=== PATIENT | male | born 1965 | race Caucasian/White ===

== ENCOUNTER 2024-07-17 23:26 | Inpatient (IN) | payer BC ==
[~2024-07-17] VITALS: Ht 186.7 cm; Wt 138.8 kg
[2024-07-17] MEDS ORDERED: ONDANSETRON HCL INJ 2MG/ML 2ML 2 MG/ML VIAL ONE (23:42)
[2024-07-17] MEDS ORDERED: SODIUM CHLORIDE 0.9% 1000ML 1,000 ML ONE (23:43)
[2024-07-17] MEDS: SODIUM CHLORIDE 0.9% 1000ML 1,000 ML IV ONE (23:53)
[2024-07-17] MEDS: ONDANSETRON HCL INJ 2MG/ML 2ML 2 MG/ML VIAL IV STA ×2 (23:58)
[2024-07-17 23:59] LABS: BASOPHILS % 0.1 % (0.0-1.0); EOSINOPHILS # (AUTO) 0.5 (0.0-0.4); EOSINOPHILS % 4.7 % (0.0-6.0); HEMATOCRIT 49.3 % (38.2-49.6); HEMOGLOBIN 15.9 g/dL (14.0-18.0); LYMPHOCYTES # (AUTO) 1.3 (1.0-3.2); MEAN CORPUSCULAR HEMOGLOBIN 30.8 pg (28-32); MEAN CORPUSCULAR HGB CONC 32.3 g/dL (31-35); MEAN CORPUSCULAR VOLUME 95.5 fL (81-99); MONOCYTES # (AUTO) 0.7 (0.2-0.8); MONOCYTES % 7.2 % (4.4-11.3); NEUTROPHILS # (AUTO) 7.7 (2.1-6.9); NEUTROPHILS % 74.8 % (38.7-80.0); PLATELET COUNT 231 x10e3/uL (140-360); RED BLOOD COUNT 5.16 x10e6/uL (4.3-5.7); RED CELL DISTRIBUTION WIDTH 13.2 % (11.7-14.4)
[2024-07-18] VITALS (45 sets, daily range): BP systolic 101–161; BP diastolic 68–120; PULSE 92–118; RESP 11–34; TEMP 97.6–98.5; O2SAT 76–100
[2024-07-18 00:14] LABS: INR 1.74; PARTIAL THROMBOPLASTIN TIME 24.1 seconds (23.8-35.5); PROTHROMBIN TIME 21.3 seconds (11.9-14.5)
[2024-07-18 00:16] LABS: ALBUMIN 3.9 g/dL (3.5-5.0); ALBUMIN/GLOBULIN RATIO 1.6 (0.8-2.0); ANION GAP 15.2 mmol/L (8-16); BILIRUBIN,TOTAL 1.1 mg/dL (0.2-1.2); CALCIUM 8.8 mg/dL (8.4-10.2); CREATININE, SERUM 0.88 mg/dL (0.72-1.25); POTASSIUM 4.2 mmol/L (3.5-5.1); TOTAL PROTEIN 6.4 g/dL (6.5-8.1)
[2024-07-18] MEDS ORDERED: SODIUM CHLORIDE 0.9% 100 ML ONE (00:28)
[2024-07-18] MEDS ORDERED: IOPAMIDOL 370 MG/ML 100 ML INFUS..BTL INJ ONE (00:28)
[2024-07-18] MEDS: SODIUM CHLORIDE 0.9% 1000ML 1,000 ML IV SCH (02:00)
[2024-07-18] MEDS: ONDANSETRON HCL INJ 2MG/ML 2ML 2 MG/ML VIAL IV PRN (04:22)
[2024-07-18] MEDS ORDERED: LOSARTAN POTASS25 MG PO (07:22)
[2024-07-18] MEDS ORDERED: ASPIRIN81 MG PO (07:22)
[2024-07-18] MEDS ORDERED: TIKOSYN250 MCG PO (07:22)
[2024-07-18] MEDS ORDERED: WARFARIN SODIUM5 MG PO (07:22)
[2024-07-18] MEDS ORDERED: LABETALOL HCL200 MG PO (07:22)
[2024-07-18] MEDS ORDERED: WEGOVY2.4 MG/0.7 SC (07:22)
[2024-07-18] MEDS ORDERED: AMLODIPINE BESY10 MG PO (07:22)
[2024-07-18 07:54] LABS: HEMATOCRIT 40.5 % (38.2-49.6)
[2024-07-18] MEDS ORDERED: MELOXICAM7.5 MG PO (10:31)
[2024-07-18] MEDS ORDERED: PROMETHAZINE 12.5MG/ NACL 0.9% 12.5 MG/50 ML BAG IV PRN (11:15)
[2024-07-18] MEDS ORDERED: SIMETHICONE 80 MG CHEW PO PRN (11:15)
[2024-07-18] MEDS ORDERED: METOPROLOL TARTRATE INJ 1 MG/ML VIAL IV PRN (11:15)
[2024-07-18] MEDS ORDERED: ALBUTEROL/IPRATROPIUM 3 ML NEB NEB PRN (11:15)
[2024-07-18] MEDS ORDERED: MELATONIN 3 MG TAB PO PRN (11:15)
[2024-07-18] MEDS ORDERED: ACETAMINOPHEN 325 MG TAB PO PRN (11:15)
[2024-07-18] MEDS: DOFETILIDE 250 MCG PO SCH (11:59)
[2024-07-18 12:49] LABS: CHOL/HDL RATIO 4.7 (3.9-4.7)
[2024-07-18 13:13] LABS: HEMATOCRIT 37.4 % (38.2-49.6); HEMOGLOBIN 11.7 g/dL (14.0-18.0)
[2024-07-18] MEDS: OCTREOTIDE ACETATE 500 MCG in SODIUM CHLORIDE 0.9% 250ML 249 ML IV SCH (14:22)
[2024-07-18] MEDS: LACTATED RINGER'S 1,000 ML INJ SCH (14:24)
[2024-07-18] MEDS ORDERED: DESMOPRESSIN ACETATE 4 MCG/ML VIAL IV ONE (17:30)
[2024-07-18 17:34] LABS: HEMOGLOBIN 10.1 g/dL (14.0-18.0)
[2024-07-18] MEDS: SODIUM CHLORIDE 0.9% 250ML 250 ML IV ONE ×2 (18:28)
[2024-07-18 23:13] LABS: INR 2.15; PROTHROMBIN TIME 25.1 seconds (11.9-14.5)
[2024-07-19] VITALS (50 sets, daily range): BP systolic 102–178; BP diastolic 55–140; PULSE 86–113; RESP 13–29; TEMP 97.9–98; O2SAT 92–100
[2024-07-19] MEDS ORDERED: SODIUM CHLORIDE 0.9% 100 ML ONE (06:24)
[2024-07-19] MEDS ORDERED: IOPAMIDOL 370 MG/ML 100 ML INFUS..BTL INJ ONE (06:24)
[2024-07-19 06:43] LABS: BASOPHILS % 0.2 % (0.0-1.0); EOSINOPHILS # (AUTO) 0.4 (0.0-0.4); EOSINOPHILS % 6.6 % (0.0-6.0); HEMATOCRIT 25.3 % (38.2-49.6); LYMPHOCYTES # (AUTO) 2.1 (1.0-3.2); LYMPHOCYTES % 31.9 % (18.0-39.1); MEAN CORPUSCULAR HEMOGLOBIN 30.5 pg (28-32); MEAN CORPUSCULAR HGB CONC 31.6 g/dL (31-35); MEAN CORPUSCULAR VOLUME 96.6 fL (81-99); MONOCYTES # (AUTO) 0.7 (0.2-0.8); MONOCYTES % 10.7 % (4.4-11.3); NEUTROPHILS # (AUTO) 3.3 (2.1-6.9); NEUTROPHILS % 50.4 % (38.7-80.0); PLATELET COUNT 150 x10e3/uL (140-360); RED BLOOD COUNT 2.62 x10e6/uL (4.3-5.7); RED CELL DISTRIBUTION WIDTH 14.2 % (11.7-14.4); WHITE BLOOD COUNT 6.55 x10e3/uL (4.8-10.8)
[2024-07-19 07:23] LABS: ALBUMIN/GLOBULIN RATIO 1.6 (0.8-2.0); ANION GAP 12.3 mmol/L (8-16); BILIRUBIN,TOTAL 0.6 mg/dL (0.2-1.2); CALCIUM 7.8 mg/dL (8.4-10.2); CREATININE, SERUM 0.92 mg/dL (0.72-1.25); POTASSIUM 4.3 mmol/L (3.5-5.1); TOTAL PROTEIN 4.9 g/dL (6.5-8.1)
[2024-07-19 07:44] LABS: THYROID STIMULATING HORMONE 0.238 uIU/mL (0.350-4.940)
[2024-07-19 07:52] LABS: INR 1.74; PROTHROMBIN TIME 21.3 seconds (11.9-14.5)
[2024-07-19] MEDS ORDERED: DESMOPRESSIN ACETATE 4 MCG/ML VIAL IV ONE (08:15)
[2024-07-19] MEDS: AMLODIPINE BESYLATE 10 MG TAB PO SCH (08:17)
[2024-07-19] MEDS: SODIUM CHLORIDE 0.9% 250ML 250 ML IV ONE (14:44)
[2024-07-19] MEDS ORDERED: KETAMINE 50MG/5ML SYR ONE (15:47)
[2024-07-19] MEDS ORDERED: PROPOFOL IV EMULSION 10 MG/ML 20 ML VIAL ONE ×2 (15:47→16:03)
[2024-07-19] MEDS ORDERED: BENZOCAINE/TETRACAINE/BUTAMBEN AERO SPRAY 56 GM CAN ONE (15:47)
[2024-07-19] MEDS ORDERED: MIDAZOLAM HCL 2 MG/2 ML VIAL ONE (15:51)
[2024-07-19] MEDS: METOCLOPRAMIDE HCL 10 MG/2ML VIAL IV SCH (18:26)
[2024-07-19] MEDS: SUCRALFATE 1 GM/10 ML SUSP NG SCH (18:27)
[2024-07-19 19:31] LABS: HEMATOCRIT 25.8 % (38.2-49.6); HEMOGLOBIN 8.3 g/dL (14.0-18.0)
[2024-07-19 19:49] LABS: INR 1.74; PROTHROMBIN TIME 21.3 seconds (11.9-14.5)
[2024-07-20] VITALS (29 sets, daily range): BP systolic 134–166; BP diastolic 65–102; PULSE 64–94; RESP 13–29; TEMP 97.4–98.7; O2SAT 82–100
[2024-07-20 01:18] LABS: HEMOGLOBIN 8.4 g/dL (14.0-18.0)
[2024-07-20 07:15] LABS: BASOPHILS % 0.2 % (0.0-1.0); EOSINOPHILS # (AUTO) 0.6 (0.0-0.4); EOSINOPHILS % 10.6 % (0.0-6.0); HEMATOCRIT 26.5 % (38.2-49.6); HEMOGLOBIN 8.4 g/dL (14.0-18.0); LYMPHOCYTES # (AUTO) 1.6 (1.0-3.2); LYMPHOCYTES % 28.1 % (18.0-39.1); MEAN CORPUSCULAR HGB CONC 31.7 g/dL (31-35); MEAN CORPUSCULAR VOLUME 94.6 fL (81-99); MONOCYTES # (AUTO) 0.6 (0.2-0.8); MONOCYTES % 9.9 % (4.4-11.3); NEUTROPHILS # (AUTO) 2.9 (2.1-6.9); NEUTROPHILS % 50.7 % (38.7-80.0); PLATELET COUNT 127 x10e3/uL (140-360); RED CELL DISTRIBUTION WIDTH 14.9 % (11.7-14.4); WHITE BLOOD COUNT 5.73 x10e3/uL (4.8-10.8)
[2024-07-20 07:30] LABS: INR 1.66; PROTHROMBIN TIME 20.5 seconds (11.9-14.5)
[2024-07-20 07:37] LABS: ANION GAP 12.7 mmol/L (8-16); CALCIUM 8.3 mg/dL (8.4-10.2); CREATININE, SERUM 0.78 mg/dL (0.72-1.25); POTASSIUM 3.7 mmol/L (3.5-5.1)
[2024-07-20 11:43] LABS: HEMATOCRIT 24.9 % (38.2-49.6); HEMOGLOBIN 7.9 g/dL (14.0-18.0)
[2024-07-20 19:18] LABS: HEMATOCRIT 25.2 % (38.2-49.6)
[2024-07-21] VITALS (16 sets, daily range): BP systolic 108–170; BP diastolic 68–100; PULSE 61–73; RESP 12–25; TEMP 97–98.5; O2SAT 94–100
[2024-07-21 00:47] LABS: HEMATOCRIT 25.6 % (38.2-49.6); HEMOGLOBIN 8.3 g/dL (14.0-18.0)
[2024-07-21 07:14] LABS: HEMOGLOBIN 8.5 g/dL (14.0-18.0)
[2024-07-21 07:48] LABS: INR 1.69; PROTHROMBIN TIME 20.8 seconds (11.9-14.5)
[2024-07-21 18:09] LABS: HEMATOCRIT 27.1 % (38.2-49.6); HEMOGLOBIN 8.7 g/dL (14.0-18.0)
[2024-07-22] VITALS (14 sets, daily range): BP systolic 129–159; BP diastolic 75–93; PULSE 57–76; RESP 14–25; TEMP 97.4–98.3; O2SAT 93–100
[2024-07-22 06:05] LABS: HEMATOCRIT 27.2 % (38.2-49.6); HEMOGLOBIN 8.8 g/dL (14.0-18.0)
[2024-07-22] MEDS: LABETALOL HCL 100 MG TAB PO SCH (11:02)
[2024-07-22 18:17] LABS: HEMATOCRIT 27.3 % (38.2-49.6); HEMOGLOBIN 9.2 g/dL (14.0-18.0)
[2024-07-23] VITALS (10 sets, daily range): BP systolic 135–156; BP diastolic 76–84; PULSE 64–87; RESP 15–20; TEMP 98.1–98.3; O2SAT 94–100
[2024-07-23 06:50] LABS: HEMATOCRIT 26.8 % (38.2-49.6); HEMOGLOBIN 8.9 g/dL (14.0-18.0)
[2024-07-23] MEDS: WARFARIN SOD 5 MG TAB PO ONE (10:13)
[2024-07-24 04:00] VITALS: BP 149/70; PULSE 66; RESP 18; TEMP 98.3; O2SAT 100
[2024-07-24 05:08] LABS: HEMATOCRIT 27.2 % (38.2-49.6)
[2024-07-24 05:35] LABS: INR 1.14; PROTHROMBIN TIME 15.3 seconds (11.9-14.5)
[2024-07-24 08:00] VITALS: BP 134/76; PULSE 87; RESP 18; TEMP 98.4; O2SAT 98
[2024-07-24] MEDS: WARFARIN SOD 5 MG TAB PO SCH (11:31)
[2024-07-24 12:00] VITALS: BP 135/68; PULSE 86; RESP 18; TEMP 97.5; O2SAT 96
[2024-07-24] MEDS ORDERED: SUCRALFATE1 GM PO (12:35)
[2024-07-24] MEDS ORDERED: PANTOPRAZOLE SO40 MG PO (12:35)
== END 2024-07-24 15:35 | disposition home or self-care (01) | DRG 369 ==
LOC: ER 23:30 → ERHOLD 07-18 01:50 → ICU 07-18 03:32 → OBSVTOIN 07-18 10:44 → MED/SURG 07-23 16:37
PROVIDERS: ADMIT Internal Medicine; ATTEND Internal Medicine
PROC: 30233N1 Transfusion of Nonautologous Red Blood Cells into Peripheral Vein, Percutaneous Approach (ICD-10-PCS; 2024-07-18)
PROC: 30233N1 Transfusion of Nonautologous Red Blood Cells into Peripheral Vein, Percutaneous Approach (ICD-10-PCS; 2024-07-19)
PROC: 30233K1 Transfusion of Nonautologous Frozen Plasma into Peripheral Vein, Percutaneous Approach (ICD-10-PCS; 2024-07-19)
PROC: 0DJ08ZZ Inspection of Upper Intestinal Tract, Via Natural or Artificial Opening Endoscopic (ICD-10-PCS; principal; 2024-07-19 15:45)
DX: K22.6 Gastro-esophageal laceration-hemorrhage syndrome (principal); A04.9 Bacterial intestinal infection, unspecified; D62 Acute posthemorrhagic anemia; I48.20 Chronic atrial fibrillation, unspecified; D68.32 Hemorrhagic disorder due to extrinsic circulating anticoagulants; T45.515A Adverse effect of anticoagulants, initial encounter; Y92.009 Unspecified place in unspecified non-institutional (private) residence as the place of occurrence of the external cause; I10 Essential (primary) hypertension; I49.3 Ventricular premature depolarization; Z95.2 Presence of prosthetic heart valve; Z79.01 Long term (current) use of anticoagulants; Z85.46 Personal history of malignant neoplasm of prostate; Z90.79 Acquired absence of other genital organ(s); Z96.653 Presence of artificial knee joint, bilateral; Z87.11 Personal history of peptic ulcer disease; N20.0 Calculus of kidney; R00.0 Tachycardia, unspecified; E66.9 Obesity, unspecified; Z68.39 Body mass index [BMI] 39.0-39.9, adult; Z71.3 Dietary counseling and surveillance; K76.0 Fatty (change of) liver, not elsewhere classified; K57.30 Diverticulosis of large intestine without perforation or abscess without bleeding; K44.9 Diaphragmatic hernia without obstruction or gangrene; K29.70 Gastritis, unspecified, without bleeding; G47.33 Obstructive sleep apnea (adult) (pediatric); Z13.1 Encounter for screening for diabetes mellitus; Z79.82 Long term (current) use of aspirin; Z79.899 Other long term (current) drug therapy
CPT/HCPCS: 36415; 43239; 71045; 74174; 80048; 80053; 80061; 83036; 83690; 84443; 85014; 85018; 85025; 85610; 85730; 86850; 86900; 86920; 93005; 93306; 94799; 99252; 99284; J2250; J2353; J2405; J2470; J2765; J7030; J7050; P9016; P9017; Q9967